=== PATIENT | female | born 1960 | race Caucasian/White ===

== ENCOUNTER → 2017-05-05 | Outpatient (CLI) | payer OTHER ==
[~2017-05-05] MED LIST: ASPIRIN81 M1 PO; CALCIUM600 M1 PO; FISH OIL 10001000 MG PO; FLAX SEED OIL1000 MG PO; FOLIC ACID0.4 MG PO; LISINOPRIL5 MG PO; MULTIPLE VITAMI1 CAP PO; SIMVASTATIN20 MG PO; VITAMIN D50000 I2 PO
== END | disposition home or self-care (01) ==
LOC: LAB 13:32
DX: E04.2 Nontoxic multinodular goiter (principal)

== ENCOUNTER → 2018-01-26 | Outpatient (CLI) | payer OTHER | END | disposition home or self-care (01) | LOC: MAMMO 01-12 15:20 | DX: Z12.31 Encounter for screening mammogram for malignant neoplasm of breast (principal) ==

== ENCOUNTER → 2018-03-09 | Outpatient (CLI) | payer OTHER | END | disposition home or self-care (01) | LOC: RAD 03:50 → LAB 11:30 | DX: M85.88 Other specified disorders of bone density and structure, other site (principal); M85.80 Other specified disorders of bone density and structure, unspecified site; Z90.710 Acquired absence of both cervix and uterus ==

== ENCOUNTER → 2018-05-10 | Outpatient (CLI) | payer OTHER | END | disposition home or self-care (01) | LOC: LAB 02:43 → US 15:00 → LAB 15:00 | DX: E04.1 Nontoxic single thyroid nodule (principal); E55.9 Vitamin D deficiency, unspecified ==

== ENCOUNTER → 2018-05-27 | Outpatient (CLI) | payer OTHER ==
[2018-05-27 16:15] LABS: FREE T4 0.96 ng/dl (0.76-1.46)
[2018-05-27 16:21] LABS: THYROID STIM HORMONE (HS) 2.12 uIU/ml (0.358-4.75)
== END | disposition home or self-care (01) ==
LOC: LAB 01:31
DX: E04.2 Nontoxic multinodular goiter (principal); E55.9 Vitamin D deficiency, unspecified

== ENCOUNTER → 2019-05-12 | Outpatient (CLI) | payer OTHER ==
[~2019-05-12] MED LIST changes: +EVISTA60 MG PO; +VITAMIN D5000 UNI1 PO; +ZESTRIL10 MG PO
== END | disposition home or self-care (01) ==
LOC: US 01:22
DX: E04.2 Nontoxic multinodular goiter (principal)

== ENCOUNTER → 2019-07-14 | Day surgery (SDC) | payer OTHER ==
[~2019-07-14] VITALS: Ht 173.9 cm; Wt 74.8 kg
--- NOTE | ~2019-07-14 | PROC NOTE ---
[place], [place] PROCEDURE NOTE [id number] UNIT #: [id number] ROOM: DOCTOR: FORTUNATO LARIOS MD BIRTHDATE: [birth year] DOS: 07/14/2019 PREOPERATIVE DIAGNOSIS: Screening examination. POSTOPERATIVE DIAGNOSIS: Sigmoid diverticulosis. PROCEDURE: Colonoscopy. ENDOSCOPIST: Fortunato Larios MD DIRECTOR WORK: LINDA. ANESTHESIA: MAC. INDICATIONS: This is a 59-year-old lady who is here for a screening examination. The procedure and its complications were explained to the patient in detail preoperatively. Complications that were discussed included but were not limited to, bleeding, colon perforation, missed lesions and prolonged pain. She agreed to proceed. DESCRIPTION OF PROCEDURE: After identifying the patient, the patient was brought to the endoscopy suite and placed in the left lateral position. After IV sedation was administered by the anesthesia team, a time-out procedure was called. A digital rectal exam was performed, which was within normal limits. An adult colonoscope was now introduced into the anal canal and advanced sequentially into the rectum, sigmoid colon, descending colon, transverse colon and ascending colon up to the cecum. Upon reaching the cecum, the scope was withdrawn. Total withdrawal time was approximately 7 minutes. The prep was found to be optimal. Upon withdrawal of the scope, there was found to be mild to moderate sigmoid diverticulosis, but no other lesions that could be identified. After the scope was withdrawn, the patient was brought back to the recovery room in stable fashion. Based on these findings, the patient is recommended to have another colonoscopy in 10 years or sooner if she had new symptoms. These findings were discussed with the patient's in the recovery room. Fortunato Larios MD CM:PROCNOTE:PROCEDURE NOTE [id number] FORTUNATO LARIOS MD
[2019-07-14 06:57] VITALS: BP 132/70
[2019-07-14 07:51] VITALS: BP 114/64
[2019-07-14 08:03] VITALS: BP 112/64
[2019-07-14 08:16] VITALS: BP 110/67
== END | disposition home or self-care (01) ==
LOC: SDC 06-27 08:00
DX: Z12.11 Encounter for screening for malignant neoplasm of colon (principal); K57.30 Diverticulosis of large intestine without perforation or abscess without bleeding; I10 Essential (primary) hypertension; Z90.710 Acquired absence of both cervix and uterus; Z86.73 Personal history of transient ischemic attack (TIA), and cerebral infarction without residual deficits; Z79.899 Other long term (current) drug therapy; Z88.8 Allergy status to other drugs, medicaments and biological substances; Z98.890 Other specified postprocedural states; Z82.49 Family history of ischemic heart disease and other diseases of the circulatory system

== ENCOUNTER → 2020-06-21 | Outpatient (CLI) | payer OTHER ==
[2020-06-21 06:10] LABS: BASO % 0.4 % (0.0-1.0); EOS # 0.2 10*3/uL (0.0-0.4); EOS % 3.9 % (1.0-4.0); HEMATOCRIT 38.3 % (37.0-47.0); LYMPH # 1.6 10*3/uL (1.3-4.4); LYMPH % 33.6 % (27.0-41.0); MEAN CELL VOLUME 90.5 fl (81.0-99.0); MEAN CORPUSCULAR HGB 29.1 pg (27.0-31.0); MEAN CORPUSCULAR HGB CONC 32.1 g/dl (33.0-37.0); MEAN PLATELET VOLUME 9.2 fl (9.6-12.3); MONO # 0.4 10*3/uL (0.1-1.0); NEUT # 2.5 10*3/uL (2.3-7.9); NEUT % 53.9 % (47.0-73.0); PLATELET COUNT AUTOMATED 288 10*3/uL (130-400); RED BLOOD COUNT 4.23 10*6/uL (4.10-5.10); RED CELL DISTRI WIDTH 12.2 % (0-14.5); WHITE BLOOD COUNT 4.6 10*3/uL (4.8-10.8)
[2020-06-21 06:28] LABS: ALBUMIN 3.4 gm/dl (3.1-4.5); ALKALINE PHOSPHATASE 54 U/L (45-117); BUN 15 mg/dl (7-24); CHLORIDE 108 mmol/L (98-107); CHOLESTEROL 213 mg/dL (<200); CREATININE 0.67 mg/dL (0.55-1.02); HDL CHOLESTEROL 74 mg/dl (40-60); LDL CHOLESTEROL 120 mg/dL (9-159); POTASSIUM 4.1 mmol/L (3.5-5.1); SGOT/AST 11 IU/L (3-35); SGPT/ALT 19 U/L (12-78); SODIUM 140 mmol/L (136-145); TOTAL PROTEIN 6.4 gm/dL (6.4-8.2); TRIGLYCERIDES 95 mg/dl (<150); VLDL CHOLESTEROL 19 mg/dL (6-40)
== END | disposition home or self-care (01) ==
LOC: LAB 01:56 → US 15:00 → LAB 15:00
PROVIDERS: Family Medicine
DX: I10 Essential (primary) hypertension (principal); E04.1 Nontoxic single thyroid nodule; R73.03 Prediabetes

== ENCOUNTER → 2020-07-03 | Outpatient (CLI) | payer OTHER | LOC: MAMMO 00:57 | DX: Z12.31 Encounter for screening mammogram for malignant neoplasm of breast (principal) ==

== ENCOUNTER → 2021-08-06 | Outpatient (CLI) | payer OTHER | END | disposition home or self-care (01) | LOC: MAMMO 07-30 14:00 | PROVIDERS: ATTEND Family Medicine | DX: Z12.31 Encounter for screening mammogram for malignant neoplasm of breast (principal) ==

== ENCOUNTER → 2022-07-26 | Outpatient (CLI) | payer OTHER ==
[2022-07-26 09:01] LABS: BASO % 0.2 % (0.0-1.0); EOS # 0.2 10*3/uL (0.0-0.4); EOS % 3.2 % (1.0-4.0); HEMATOCRIT 39.9 % (37.0-47.0); LYMPH # 1.4 10*3/uL (1.3-4.4); LYMPH % 30.2 % (27.0-41.0); MEAN CELL VOLUME 90.7 fl (81.0-99.0); MEAN CORPUSCULAR HGB 29.5 pg (27.0-31.0); MEAN CORPUSCULAR HGB CONC 32.6 g/dl (33.0-37.0); MEAN PLATELET VOLUME 9.3 fl (9.6-12.3); MONO # 0.4 10*3/uL (0.1-1.0); MONO % 7.7 % (3.0-9.0); NEUT # 2.8 10*3/uL (2.3-7.9); NEUT % 58.5 % (47.0-73.0); PLATELET COUNT AUTOMATED 244 10*3/uL (130-400); RED CELL DISTRI WIDTH 12.1 % (0-14.5); WHITE BLOOD COUNT 4.7 10*3/uL (4.8-10.8)
[2022-07-26 09:20] LABS: ALKALINE PHOSPHATASE 57 U/L (45-117); BUN 19 mg/dl (7-24); CHLORIDE 113 mmol/L (98-107); CREATININE 0.62 mg/dL (0.55-1.02); POTASSIUM 4.3 mmol/L (3.5-5.1); SGOT/AST 11 IU/L (3-35); SGPT/ALT 21 U/L (12-78); SODIUM 143 mmol/L (136-145); TOTAL PROTEIN 6.6 gm/dL (6.4-8.2)
== END ==
LOC: LAB 00:41
PROVIDERS: ATTEND Family Medicine
DX: E04.1 Nontoxic single thyroid nodule (principal); I10 Essential (primary) hypertension

== ENCOUNTER → 2022-08-12 | Outpatient (CLI) | payer OTHER | END | disposition home or self-care (01) | LOC: MAMMO 01:06 | PROVIDERS: ATTEND Family Medicine | DX: Z12.31 Encounter for screening mammogram for malignant neoplasm of breast (principal) ==

== ENCOUNTER → 2023-07-01 | Outpatient (CLI) | payer OTHER ==
[2023-07-01 16:51] LABS: BASO % 0.4 % (0.0-1.0); EOS # 0.1 10*3/uL (0.0-0.4); EOS % 1.4 % (1.0-4.0); HEMATOCRIT 39.6 % (37.0-47.0); LYMPH # 1.7 10*3/uL (1.3-4.4); LYMPH % 31.5 % (27.0-41.0); MEAN CELL VOLUME 90.4 fl (81.0-99.0); MEAN CORPUSCULAR HGB 29.7 pg (27.0-31.0); MEAN CORPUSCULAR HGB CONC 32.8 g/dl (33.0-37.0); MEAN PLATELET VOLUME 9.2 fl (9.6-12.3); MONO # 0.4 10*3/uL (0.1-1.0); MONO % 6.7 % (3.0-9.0); NEUT # 3.3 10*3/uL (2.3-7.9); NEUT % 59.8 % (47.0-73.0); PLATELET COUNT AUTOMATED 267 10*3/uL (130-400); RED BLOOD COUNT 4.38 10*6/uL (4.10-5.10); RED CELL DISTRI WIDTH 12.1 % (0-14.5); WHITE BLOOD COUNT 5.5 10*3/uL (4.8-10.8)
[2023-07-01 17:37] LABS: VITAMIN D, 25-HYDROXY 61.6 ng/mL (30-100)
[2023-07-01 17:38] LABS: ALKALINE PHOSPHATASE 62 U/L (46-116); BUN 13 mg/dl (9-23); CHLORIDE 104 mmol/L (98-107); POTASSIUM 4.2 mmol/L (3.4-5.1); SGPT/ALT 14 U/L (10-49); TOTAL PROTEIN 6.8 gm/dL (6.0-8.0)
== END | disposition home or self-care (01) ==
LOC: RESCLI 01:28
PROVIDERS: Student in an Organized Health Care Education/Training Program; ATTEND Internal Medicine
DX: Z23 Encounter for immunization (principal); I10 Essential (primary) hypertension; M85.88 Other specified disorders of bone density and structure, other site; H04.129 Dry eye syndrome of unspecified lacrimal gland; E78.00 Pure hypercholesterolemia, unspecified; Z86.73 Personal history of transient ischemic attack (TIA), and cerebral infarction without residual deficits; Z90.710 Acquired absence of both cervix and uterus

== ENCOUNTER → 2023-08-14 | Outpatient (CLI) | payer OTHER | END | disposition home or self-care (01) | LOC: RAD 07-17 01:32 | PROVIDERS: ATTEND Internal Medicine | DX: M85.88 Other specified disorders of bone density and structure, other site (principal); N95.0 Postmenopausal bleeding ==

== ENCOUNTER → 2023-08-18 | Outpatient (CLI) | payer OTHER | END | disposition home or self-care (01) | LOC: MAMMO 01:28 | PROVIDERS: ATTEND Internal Medicine | DX: Z12.31 Encounter for screening mammogram for malignant neoplasm of breast (principal) ==

== ENCOUNTER → 2024-10-24 | Outpatient (CLI) | payer MEDICARE ==
[2024-10-24 09:41] LABS: BASO % 0.5 % (0.0-1.0); EOS # 0.1 10*3/uL (0.0-0.4); HEMATOCRIT 39.4 % (37.0-47.0); MEAN CORPUSCULAR HGB 29.3 pg (27.0-31.0); MEAN CORPUSCULAR HGB CONC 32.2 g/dl (33.0-37.0); MONO # 0.3 10*3/uL (0.1-1.0); MONO % 8.2 % (3.0-9.0); NEUT # 2.2 10*3/uL (2.3-7.9); NEUT % 54.5 % (47.0-73.0); PLATELET COUNT AUTOMATED 256 10*3/uL (130-400); RED BLOOD COUNT 4.33 10*6/uL (4.10-5.10); RED CELL DISTRI WIDTH 12.3 % (0-14.5)
[2024-10-24 11:09] LABS: ALKALINE PHOSPHATASE 56 U/L (46-116); BUN 13 mg/dl (9-23); CHLORIDE 105 mmol/L (98-107); CHOLESTEROL 220 mg/dL (<200); LDL CHOLESTEROL 113 mg/dL (9-159); POTASSIUM 3.9 mmol/L (3.4-5.1); SGPT/ALT 14 U/L (5-49); TOTAL PROTEIN 6.6 gm/dL (6.0-8.0); TRIGLYCERIDES 143 mg/dl (<150)
== END | disposition home or self-care (01) ==
LOC: LAB 09:13
PROVIDERS: ATTEND Nurse Practitioner Family
DX: Z13.220 Encounter for screening for lipoid disorders (principal); Z13.1 Encounter for screening for diabetes mellitus; Z12.31 Encounter for screening mammogram for malignant neoplasm of breast; I10 Essential (primary) hypertension; M85.80 Other specified disorders of bone density and structure, unspecified site; H04.129 Dry eye syndrome of unspecified lacrimal gland; E55.9 Vitamin D deficiency, unspecified; E04.1 Nontoxic single thyroid nodule

== ENCOUNTER → 2024-12-01 | Outpatient (CLI) | payer MEDICARE | END | disposition home or self-care (01) | LOC: MAMMO 01:41 | PROVIDERS: ATTEND Nurse Practitioner Family | DX: Z12.31 Encounter for screening mammogram for malignant neoplasm of breast (principal) ==

== ENCOUNTER → 2025-10-25 | Outpatient (CLI) | payer MEDICARE | END | disposition home or self-care (01) | LOC: RAD 10-23 09:30 | PROVIDERS: ATTEND Nurse Practitioner Family | DX: M85.88 Other specified disorders of bone density and structure, other site (principal); E55.9 Vitamin D deficiency, unspecified ==